=== PATIENT | male | born 1975 | race Caucasian/White ===

== ENCOUNTER 2017-09-06 02:49 | Emergency (ER) | payer MEDICAID ==
[~2017-09-06] VITALS: Ht 167.6 cm; Wt 77.3 kg
[~2017-09-06 02:49] MED LIST: BUPR-94 PO; OLAN20TA3 PO
[2017-09-06] MEDS ORDERED: ondansetron/PF 4mg/2ml inj IM ONE (03:05)
[2017-09-06] MEDS ORDERED: morphine 4 MG/ML inj SYRINge IM ONE (03:05)
[2017-09-06] MEDS ORDERED: dicyclomine 10mg/ml 2ml ampule IM ONE (04:15)
[2017-09-06 04:19] LABS: BASOPHILS % (AUTO) 0.4 % (0-1); EOSINOPHILS # (AUTO) 0.1 X10'3 (0-0.9); EOSINOPHILS % (AUTO) 1.5 % (0-6); HEMATOCRIT 46.1 % (42.0-52.0); HEMOGLOBIN 15.6 g/dl (14.0-17.9); LYMPHOCYTES # (AUTO) 1.1 X10'3 (1.1-4.8); LYMPHOCYTES % (AUTO) 13.2 % (21-51); MEAN CORPUSCULAR HEMOGLOBIN 28.6 PG (27.0-31.0); MEAN CORPUSCULAR HGB CONC 33.7 % (33.0-36.5); MEAN CORPUSCULAR VOLUME 84.8 FL (78-98); MEAN PLATELET VOLUME 7.3 FL (7.4-10.4); MONOCYTES # (AUTO) 0.5 X10'3 (0-0.9); MONOCYTES % (AUTO) 6.5 % (2-12); NEUTROPHILS # (AUTO) 6.6 X10'3 (1.8-7.7); NEUTROPHILS % (AUTO) 78.4 % (42-75); PLATELET COUNT 142 X10'3 (140-440); RED BLOOD COUNT 5.44 X10'6 (4.70-6.10); RED CELL DISTRIBUTION WIDTH 14.8 % (11.5-14.5); WHITE BLOOD COUNT 8.4 X10'3 (4.5-11.0)
[2017-09-06 04:28] LABS: GASTRIC OCCULT BLOOD POSITIVE (Neg)
[2017-09-06 04:31] LABS: ALANINE AMINOTRANSFERASE 110 U/L (12-78); ALBUMIN 4.2 G/DL (3.4-5.0); ALKALINE PHOSPHATASE 56 IU/L (46-116); ANION GAP 8 (8-16); ASPARTATE AMINO TRANSFERASE 45 U/L (10-37); BILIRUBIN,TOTAL 0.6 MG/DL (0.1-1.0); BLOOD UREA NITROGEN 19 MG/DL (7-18); BUN/CREATININE RATIO 19.8 (5.4-32.0); CALCIUM 9.3 MG/DL (8.5-10.1); CHLORIDE 102 MMOL/L (99-107); CREATININE 0.96 MG/DL (0.60-1.10); GLUCOSE 114 MG/DL (70-104); POTASSIUM 3.9 MMOL/L (3.5-5.1); SODIUM 140 MMOL/L (135-145); TOTAL CARBON DIOXIDE 30.1 MMOL/L (24-32); TOTAL PROTEIN 8.5 G/DL (6.4-8.2); eGFR 85 ML/MIN
[2017-09-06] MEDS ORDERED: MAGN296S50 PO (04:56)
[2017-09-06] MEDS ORDERED: ONDA8TAB9 PO (04:56)
[2017-09-06] MEDS ORDERED: DICY10CA88 PO (04:56)
[2017-09-06 08:03] VITALS: BP 131/91
[2017-09-07] MEDS ORDERED: MULT-1154 PO (15:18)
[2017-09-07] MEDS ORDERED: OMEP20TA5 PO (15:18)
[2017-09-07] MEDS ORDERED: METO25TA6 PO (15:18)
[2017-09-07] MEDS ORDERED: MAGN296S50 PO (15:33)
[2017-09-07] MEDS ORDERED: ONDA4TAB6 PO (15:33)
[2017-09-07] MEDS ORDERED: ACET-2119 PO (15:33)
[2017-09-07] MEDS ORDERED: FAMO-128 PO (15:33)
[2017-09-07] MEDS ORDERED: OLAN-1 PO (15:33)
[2017-09-07] MEDS ORDERED: BUPR100T13 PO (15:33)
[2017-09-07] MEDS ORDERED: HYDR-565 PO (15:33)
== END 2017-09-06 07:50 | disposition home or self-care (01) ==
LOC: ER 02:50
DX: K59.00 Constipation, unspecified (principal); R10.12 Left upper quadrant pain; K92.0 Hematemesis; F12.10 Cannabis abuse, uncomplicated; F15.10 Other stimulant abuse, uncomplicated; Z56.0 Unemployment, unspecified; Z60.2 Problems related to living alone; Z59.0 Homelessness; Z79.899 Other long term (current) drug therapy
CPT/HCPCS: 36415; 74022; 80053; 82271; 85025; 96372; 99285; J0500; J2270; J2405

== ENCOUNTER 2017-09-06 21:45 | Inpatient (IN) | payer MEDICAID ==
[~2017-09-06] VITALS: Ht 172.7 cm; Wt 77.3 kg
[~2017-09-06 21:45] MED LIST changes: +DICY10CA88 PO; +MAGN296S50 PO; +ONDA8TAB9 PO
[2017-09-06] MEDS ORDERED: ketorolac trometh. 30mg/ml inj. IV ONE (21:55)
[2017-09-06] MEDS ORDERED: magnesium citrate 296ml oral solution PO ONE (21:55)
[2017-09-06] MEDS ORDERED: ondansetron/PF 4mg/2ml inj IV ONE (22:35)
[2017-09-07] MEDS: normal saline 1000ml 1,000 ML IV SCH ×4 (00:44→19:17)
[2017-09-07] MEDS ORDERED: diphenhydrAMINE 50 mg/ml inj IV PRN (00:45)
[2017-09-07] MEDS ORDERED: mag hydrox/Alum hydrox/simeth 30ml oral suspension PO PRN (00:45)
[2017-09-07] MEDS ORDERED: HYDROcodone/acetaminophen 5mg/325mg tablet PO PRN (00:45)
[2017-09-07] MEDS ORDERED: metoclopramide 5 mg/ml inj IV PRN (00:45)
[2017-09-07] MEDS ORDERED: HYDROmorphone inj. 0.5 MG/0.5 ML DISP.SYRIN IV PRN ×2 (00:45)
[2017-09-07] MEDS ORDERED: magnesium hydroxide 30ml (MOM) UD suspension PO PRN (00:45)
[2017-09-07] MEDS ORDERED: morphine 2 MG/ML inj. syringe IV PRN ×2 (00:45)
[2017-09-07] MEDS ORDERED: bisacodyl 10mg suppository rectal RC PRN (00:45)
[2017-09-07] MEDS ORDERED: acetaminophen 325mg tablet PO PRN ×2 (00:45)
[2017-09-07] MEDS ORDERED: acetaminophen 650mg rectal suppository RC PRN (00:45)
[2017-09-07] MEDS ORDERED: diphenhydrAMINE 25mg capsule PO PRN (00:45)
[2017-09-07] MEDS ORDERED: mineral oil 133ml enema RC PRN (00:50)
[2017-09-07] MEDS ORDERED: PEG 3350/Na sulf,bicarb,Cl/KCl oral sol 4 liter bottle PO ONE ×2 (00:50→01:13)
[2017-09-07 01:29] LABS: LIPASE 205 U/L (73-393); MAGNESIUM 2.6 MG/DL (1.5-2.4); PHOSPHORUS 2.7 MG/DL (2.3-4.5); TROPONIN I < 0.04 NG/ML (0.0-0.05)
[2017-09-07] MEDS ORDERED: normal saline 1000ML IV soln IVB ONE (01:35)
[2017-09-07 04:33] LABS: BASOPHILS % (AUTO) 0.3 % (0-1); EOSINOPHILS % (AUTO) 0.2 % (0-6); HEMATOCRIT 46.8 % (42.0-52.0); HEMOGLOBIN 15.6 g/dl (14.0-17.9); LYMPHOCYTES # (AUTO) 1.1 X10'3 (1.1-4.8); LYMPHOCYTES % (AUTO) 10.9 % (21-51); MEAN CORPUSCULAR HEMOGLOBIN 28.5 PG (27.0-31.0); MEAN CORPUSCULAR HGB CONC 33.3 % (33.0-36.5); MEAN CORPUSCULAR VOLUME 85.7 FL (78-98); MEAN PLATELET VOLUME 8.6 FL (7.4-10.4); MONOCYTES # (AUTO) 0.7 X10'3 (0-0.9); MONOCYTES % (AUTO) 6.9 % (2-12); NEUTROPHILS # (AUTO) 8.2 X10'3 (1.8-7.7); NEUTROPHILS % (AUTO) 81.7 % (42-75); PLATELET COUNT 147 X10'3 (140-440); RED BLOOD COUNT 5.46 X10'6 (4.70-6.10); RED CELL DISTRIBUTION WIDTH 14.5 % (11.5-14.5)
[2017-09-07 04:38] LABS: ALANINE AMINOTRANSFERASE 99 U/L (12-78); ALBUMIN 4.3 G/DL (3.4-5.0); ALKALINE PHOSPHATASE 57 IU/L (46-116); ANION GAP 11 (8-16); ASPARTATE AMINO TRANSFERASE 43 U/L (10-37); BILIRUBIN,TOTAL 0.6 MG/DL (0.1-1.0); BLOOD UREA NITROGEN 22 MG/DL (7-18); BUN/CREATININE RATIO 20.6 (5.4-32.0); CALCIUM 9.4 MG/DL (8.5-10.1); CHLORIDE 102 MMOL/L (99-107); CREATININE 1.07 MG/DL (0.60-1.10); GLUCOSE 131 MG/DL (70-104); POTASSIUM 4.3 MMOL/L (3.5-5.1); SODIUM 143 MMOL/L (135-145); TOTAL CARBON DIOXIDE 29.6 MMOL/L (24-32); TOTAL PROTEIN 8.7 G/DL (6.4-8.2); eGFR 75 ML/MIN
[2017-09-07] MEDS: ondansetron/PF 4mg/2ml inj IV PRN ×3 (06:31→19:17)
[2017-09-07] MEDS ORDERED: ketorolac trometh. 30mg/ml inj. IV ONE (06:55)
[2017-09-07] MEDS: pantoprazole 40mg Tablet.DR PO SCH (07:30)
[2017-09-07] MEDS: docusate sod 100mg capsule PO SCH ×2 (08:00→20:00)
[2017-09-07] MEDS: heparin, porcine 5000 units/ml vial SQ SCH ×2 (10:16→21:08)
[2017-09-07] MEDS ORDERED: morphine 4 MG/ML inj SYRINge IV PRN (10:54)
[2017-09-07] MEDS: morphine 4 MG/ML inj SYRINge IV PRN ×3 (11:00→23:22)
[2017-09-07] MEDS ORDERED: morphine 4 MG/ML inj SYRINge IV ONE (13:35)
[2017-09-07 14:30] VITALS: BP 155/95
[2017-09-07] MEDS ORDERED: HYDROcodone/acetaminophen 10/325mg tab PO ONE (14:33)
[2017-09-07] MEDS: HYDROcodone/acetaminophen 10/325mg tab PO PRN (14:37)
[2017-09-07] MEDS ORDERED: MULT-1154 PO (15:18)
[2017-09-07] MEDS ORDERED: METO25TA6 PO (15:18)
[2017-09-07] MEDS ORDERED: OMEP20TA5 PO (15:18)
[2017-09-07] MEDS ORDERED: MAGN296S50 PO (15:33)
[2017-09-07] MEDS ORDERED: ONDA4TAB6 PO (15:33)
[2017-09-07] MEDS ORDERED: BUPR100T13 PO (15:33)
[2017-09-07] MEDS ORDERED: HYDR-565 PO (15:33)
[2017-09-07] MEDS ORDERED: FAMO-128 PO (15:33)
[2017-09-07] MEDS ORDERED: OLAN-1 PO (15:33)
[2017-09-07] MEDS ORDERED: ACET-2119 PO (15:33)
[2017-09-07 16:04] VITALS: BP 161/96
[2017-09-07 18:00] VITALS: BP 128/66
[2017-09-07] MEDS ORDERED: temazepam 15mg capsule PO PRN (21:00)
[2017-09-07] MEDS: buPROPion 100mg tablet PO SCH (21:07)
[2017-09-07] MEDS: OLANZapine 2.5MG tablet PO SCH (21:07)
[2017-09-07] MEDS ORDERED: proCHLORperazine 10 MG/2 ml inj IV PRN (21:25)
[2017-09-07] MEDS ORDERED: normal saline 1000ml 1,000 ML IVB ONE (21:33)
[2017-09-07 22:00] VITALS: BP 137/81
[2017-09-08] VITALS (10 sets, daily range): BP systolic 130–172; BP diastolic 66–110
[2017-09-08] MEDS: ondansetron/PF 4mg/2ml inj IV PRN ×4 (01:34→15:41)
[2017-09-08] MEDS: LORazepam 2 mg/ml vial IV PRN ×3 (01:44→19:56)
[2017-09-08] MEDS: morphine 4 MG/ML inj SYRINge IV PRN ×5 (03:02→21:05)
[2017-09-08 06:02] LABS: BASOPHILS % (AUTO) 0.1 % (0-1); EOSINOPHILS # (AUTO) 0.1 X10'3 (0-0.9); EOSINOPHILS % (AUTO) 0.8 % (0-6); HEMATOCRIT 37.9 % (42.0-52.0); HEMOGLOBIN 12.9 g/dl (14.0-17.9); LYMPHOCYTES % (AUTO) 10.7 % (21-51); MEAN CORPUSCULAR HEMOGLOBIN 28.9 PG (27.0-31.0); MEAN CORPUSCULAR HGB CONC 34.2 % (33.0-36.5); MEAN CORPUSCULAR VOLUME 84.6 FL (78-98); MEAN PLATELET VOLUME 7.5 FL (7.4-10.4); MONOCYTES % (AUTO) 10.9 % (2-12); NEUTROPHILS # (AUTO) 7.1 X10'3 (1.8-7.7); NEUTROPHILS % (AUTO) 77.5 % (42-75); RED BLOOD COUNT 4.48 X10'6 (4.70-6.10); RED CELL DISTRIBUTION WIDTH 14.7 % (11.5-14.5); WHITE BLOOD COUNT 9.1 X10'3 (4.5-11.0)
[2017-09-08 06:37] LABS: PLATELET COUNT 100 X10'3 (140-440)
[2017-09-08 06:48] LABS: ALANINE AMINOTRANSFERASE 63 U/L (12-78); ALBUMIN 3.3 G/DL (3.4-5.0); ALBUMIN/GLOBULIN RATIO 0.9 (1.1-1.5); ALKALINE PHOSPHATASE 44 IU/L (46-116); ANION GAP 9 (8-16); ASPARTATE AMINO TRANSFERASE 31 U/L (10-37); BILIRUBIN,TOTAL 0.6 MG/DL (0.1-1.0); BLOOD UREA NITROGEN 11 MG/DL (7-18); BUN/CREATININE RATIO 16.2 (5.4-32.0); CALCIUM 7.6 MG/DL (8.5-10.1); CHLORIDE 102 MMOL/L (99-107); CREATININE 0.68 MG/DL (0.60-1.10); GLUCOSE 126 MG/DL (70-104); POTASSIUM 3.4 MMOL/L (3.5-5.1); SODIUM 139 MMOL/L (135-145); TOTAL CARBON DIOXIDE 28.4 MMOL/L (24-32); eGFR > 90 ML/MIN
[2017-09-08] MEDS: pantoprazole 40mg Tablet.DR PO SCH (07:30)
[2017-09-08] MEDS: buPROPion 100mg tablet PO SCH ×2 (08:00→19:18)
[2017-09-08] MEDS: docusate sod 100mg capsule PO SCH ×2 (08:00→19:18)
[2017-09-08] MEDS: OLANZapine 2.5MG tablet PO SCH ×2 (08:00→19:19)
[2017-09-08] MEDS: heparin, porcine 5000 units/ml vial SQ SCH ×2 (08:00→20:00)
[2017-09-08] MEDS ORDERED: fentaNYL/PF 50MCG/1 ML 2ML syringe IV PRN (10:25)
[2017-09-08] MEDS ORDERED: normal saline 1000ml 1,000 ML IV SCH (10:25)
[2017-09-08] MEDS ORDERED: MIDAZolam 5mg/ml 2ml vial IV PRN (10:25)
[2017-09-08] MEDS ORDERED: simethicone 40mg/0.6ml oral drops 30ml MC ONE (10:25)
[2017-09-08] MEDS ORDERED: LIDOcaine Viscous 15ml cup PO ONE (10:25)
[2017-09-08] MEDS ORDERED: iohexol 300mg/ml 100ml inj. ONE (13:07)
[2017-09-08] MEDS ORDERED: MIDAZolam 5mg/ml 2ml vial ONE (13:44)
[2017-09-08] MEDS ORDERED: fentaNYL/PF 50MCG/1 ML 2ML syringe ONE (13:44)
[2017-09-08] MEDS ORDERED: LIDOcaine Viscous 15ml cup ONE (13:45)
[2017-09-08] MEDS ORDERED: ondansetron/PF 4mg/2ml inj ONE (15:35)
[2017-09-08] MEDS: normal saline 1000ml 1,000 ML IV SCH (16:44)
[2017-09-08] MEDS: pantoprazole 40MG/NS 100ML BAG 100 ML IV SCH ×2 (17:53→22:36)
[2017-09-08] MEDS ORDERED: magnesium 4gm in 100ml NS 100 ML IV PRN (18:35)
[2017-09-08] MEDS ORDERED: potassium Cl 40MEQ/NS 500ml 500 ML IV PRN ×2 (18:35)
[2017-09-08] MEDS ORDERED: magnesium Cl slow-release 64mg tablet PO PRN (18:35)
[2017-09-08] MEDS ORDERED: potassium Cl 20 mEq SR tablet PO PRN ×2 (18:35)
[2017-09-08] MEDS ORDERED: magnesium 2GM in 50ml NS 50 ML IV PRN (18:35)
[2017-09-09] MEDS ORDERED: morphine 4 MG/ML inj SYRINge IV ONE (00:10)
[2017-09-09] MEDS: morphine 4 MG/ML inj SYRINge IV PRN ×6 (01:15→20:52)
[2017-09-09] MEDS: normal saline 1000ml 1,000 ML IV SCH ×3 (02:44→14:55)
[2017-09-09] MEDS: pantoprazole 40MG/NS 100ML BAG 100 ML IV SCH ×5 (03:44→21:00)
[2017-09-09 05:40] LABS: BASOPHILS % (AUTO) 0.3 % (0-1); EOSINOPHILS % (AUTO) 0.7 % (0-6); HEMATOCRIT 32.3 % (42.0-52.0); HEMOGLOBIN 11.1 g/dl (14.0-17.9); LYMPHOCYTES # (AUTO) 1.3 X10'3 (1.1-4.8); LYMPHOCYTES % (AUTO) 25.2 % (21-51); MEAN CORPUSCULAR HEMOGLOBIN 28.8 PG (27.0-31.0); MEAN CORPUSCULAR HGB CONC 34.5 % (33.0-36.5); MEAN CORPUSCULAR VOLUME 83.6 FL (78-98); MEAN PLATELET VOLUME 7.6 FL (7.4-10.4); MONOCYTES # (AUTO) 0.5 X10'3 (0-0.9); MONOCYTES % (AUTO) 9.6 % (2-12); NEUTROPHILS # (AUTO) 3.4 X10'3 (1.8-7.7); NEUTROPHILS % (AUTO) 64.2 % (42-75); PLATELET COUNT 95 X10'3 (140-440); RED BLOOD COUNT 3.87 X10'6 (4.70-6.10); RED CELL DISTRIBUTION WIDTH 14.9 % (11.5-14.5); WHITE BLOOD COUNT 5.4 X10'3 (4.5-11.0)
[2017-09-09 06:00] VITALS: BP 123/82
[2017-09-09 06:13] LABS: ALANINE AMINOTRANSFERASE 49 U/L (12-78); ALBUMIN 2.9 G/DL (3.4-5.0); ALBUMIN/GLOBULIN RATIO 0.9 (1.1-1.5); ALKALINE PHOSPHATASE 36 IU/L (46-116); ANION GAP 7 (8-16); ASPARTATE AMINO TRANSFERASE 16 U/L (10-37); BILIRUBIN,TOTAL 0.5 MG/DL (0.1-1.0); BLOOD UREA NITROGEN 14 MG/DL (7-18); BUN/CREATININE RATIO 18.4 (5.4-32.0); CALCIUM 7.7 MG/DL (8.5-10.1); CHLORIDE 108 MMOL/L (99-107); CREATININE 0.76 MG/DL (0.60-1.10); GLUCOSE 88 MG/DL (70-104); POTASSIUM 3.8 MMOL/L (3.5-5.1); SODIUM 144 MMOL/L (135-145); TOTAL CARBON DIOXIDE 29.2 MMOL/L (24-32); TOTAL PROTEIN 6.3 G/DL (6.4-8.2); eGFR > 90 ML/MIN
[2017-09-09] MEDS: OLANZapine 2.5MG tablet PO SCH ×2 (08:00→19:43)
[2017-09-09] MEDS: buPROPion 100mg tablet PO SCH ×2 (08:00→19:43)
[2017-09-09] MEDS: docusate sod 100mg capsule PO SCH ×2 (08:00→19:43)
[2017-09-09] MEDS: heparin, porcine 5000 units/ml vial SQ SCH ×2 (08:00→20:00)
[2017-09-09 10:00] VITALS: BP 122/80
[2017-09-09 18:00] VITALS: BP 125/85
[2017-09-09 20:00] VITALS: BP 131/89
[2017-09-10] MEDS: morphine 4 MG/ML inj SYRINge IV PRN ×8 (00:04→21:38)
[2017-09-10] MEDS: normal saline 1000ml 1,000 ML IV SCH ×3 (01:25→20:30)
[2017-09-10] MEDS: pantoprazole 40MG/NS 100ML BAG 100 ML IV SCH ×7 (06:00→22:51)
[2017-09-10 06:28] LABS: BASOPHILS % (AUTO) 0.6 % (0-1); EOSINOPHILS % (AUTO) 1.4 % (0-6); HEMATOCRIT 30.1 % (42.0-52.0); HEMOGLOBIN 10.3 g/dl (14.0-17.9); LYMPHOCYTES # (AUTO) 0.7 X10'3 (1.1-4.8); LYMPHOCYTES % (AUTO) 22.5 % (21-51); MEAN CORPUSCULAR HGB CONC 34.3 % (33.0-36.5); MEAN CORPUSCULAR VOLUME 84.4 FL (78-98); MEAN PLATELET VOLUME 7.3 FL (7.4-10.4); MONOCYTES # (AUTO) 0.4 X10'3 (0-0.9); MONOCYTES % (AUTO) 13.9 % (2-12); NEUTROPHILS # (AUTO) 1.9 X10'3 (1.8-7.7); NEUTROPHILS % (AUTO) 61.6 % (42-75); PLATELET COUNT 96 X10'3 (140-440); RED BLOOD COUNT 3.56 X10'6 (4.70-6.10); RED CELL DISTRIBUTION WIDTH 14.5 % (11.5-14.5); WHITE BLOOD COUNT 3.1 X10'3 (4.5-11.0)
[2017-09-10 06:46] LABS: ALANINE AMINOTRANSFERASE 42 U/L (12-78); ALBUMIN 2.7 G/DL (3.4-5.0); ALBUMIN/GLOBULIN RATIO 0.8 (1.1-1.5); ALKALINE PHOSPHATASE 33 IU/L (46-116); ANION GAP 10 (8-16); ASPARTATE AMINO TRANSFERASE 20 U/L (10-37); BILIRUBIN,TOTAL 0.5 MG/DL (0.1-1.0); BLOOD UREA NITROGEN 15 MG/DL (7-18); BUN/CREATININE RATIO 22.7 (5.4-32.0); CALCIUM 7.7 MG/DL (8.5-10.1); CHLORIDE 110 MMOL/L (99-107); CREATININE 0.66 MG/DL (0.60-1.10); GLUCOSE 68 MG/DL (70-104); MAGNESIUM 1.8 MG/DL (1.5-2.4); POTASSIUM 3.7 MMOL/L (3.5-5.1); SODIUM 144 MMOL/L (135-145); TOTAL CARBON DIOXIDE 23.9 MMOL/L (24-32); TOTAL PROTEIN 6.1 G/DL (6.4-8.2); eGFR > 90 ML/MIN
[2017-09-10] MEDS: OLANZapine 2.5MG tablet PO SCH ×2 (08:00→20:29)
[2017-09-10] MEDS: buPROPion 100mg tablet PO SCH ×2 (08:00→20:29)
[2017-09-10] MEDS: docusate sod 100mg capsule PO SCH ×2 (08:00→20:29)
[2017-09-10 18:00] VITALS: BP 138/91
[2017-09-10] MEDS ORDERED: pantoprazole 40 MG vial IV ONE (20:00)
[2017-09-10 21:47] VITALS: BP 164/105
[2017-09-10 22:54] VITALS: BP 146/99
[2017-09-11] MEDS: morphine 4 MG/ML inj SYRINge IV PRN ×8 (00:34→21:49)
[2017-09-11] MEDS: pantoprazole 40MG/NS 100ML BAG 100 ML IV SCH ×2 (03:43→10:42)
[2017-09-11 06:00] VITALS: BP 140/92
[2017-09-11 06:18] LABS: BASOPHILS % (AUTO) 0.5 % (0-1); EOSINOPHILS # (AUTO) 0.1 X10'3 (0-0.9); EOSINOPHILS % (AUTO) 2.3 % (0-6); HEMATOCRIT 29.5 % (42.0-52.0); HEMOGLOBIN 10.3 g/dl (14.0-17.9); LYMPHOCYTES # (AUTO) 0.9 X10'3 (1.1-4.8); LYMPHOCYTES % (AUTO) 31.6 % (21-51); MEAN CORPUSCULAR HEMOGLOBIN 29.3 PG (27.0-31.0); MEAN CORPUSCULAR VOLUME 83.7 FL (78-98); MEAN PLATELET VOLUME 6.8 FL (7.4-10.4); MONOCYTES # (AUTO) 0.4 X10'3 (0-0.9); NEUTROPHILS # (AUTO) 1.5 X10'3 (1.8-7.7); NEUTROPHILS % (AUTO) 51.6 % (42-75); PLATELET COUNT 111 X10'3 (140-440); RED BLOOD COUNT 3.53 X10'6 (4.70-6.10); RED CELL DISTRIBUTION WIDTH 14.4 % (11.5-14.5)
[2017-09-11 06:43] LABS: ALANINE AMINOTRANSFERASE 43 U/L (12-78); ALBUMIN 2.5 G/DL (3.4-5.0); ALBUMIN/GLOBULIN RATIO 0.8 (1.1-1.5); ALKALINE PHOSPHATASE 40 IU/L (46-116); ANION GAP 8 (8-16); ASPARTATE AMINO TRANSFERASE 30 U/L (10-37); BILIRUBIN,TOTAL 0.7 MG/DL (0.1-1.0); BLOOD UREA NITROGEN 8 MG/DL (7-18); BUN/CREATININE RATIO 13.1 (5.4-32.0); CALCIUM 7.5 MG/DL (8.5-10.1); CHLORIDE 106 MMOL/L (99-107); CREATININE 0.61 MG/DL (0.60-1.10); GLUCOSE 82 MG/DL (70-104); MAGNESIUM 1.6 MG/DL (1.5-2.4); POTASSIUM 3.3 MMOL/L (3.5-5.1); SODIUM 140 MMOL/L (135-145); TOTAL CARBON DIOXIDE 25.9 MMOL/L (24-32); TOTAL PROTEIN 5.8 G/DL (6.4-8.2); eGFR > 90 ML/MIN
[2017-09-11 06:53] LABS: PLATELET ESTIMATE DECREASED; TOTAL CELLS COUNTED 100
[2017-09-11 06:54] LABS: ANISOCYTOSIS 1+; ELLIPTOCYTES FEW; MICROCYTOSIS 1+
[2017-09-11] MEDS: docusate sod 100mg capsule PO SCH ×2 (07:07→21:49)
[2017-09-11] MEDS: buPROPion 100mg tablet PO SCH ×2 (07:07→21:50)
[2017-09-11] MEDS: OLANZapine 2.5MG tablet PO SCH ×2 (08:25→21:49)
[2017-09-11 10:00] VITALS: BP 129/85
[2017-09-11] MEDS: normal saline 1000ml 1,000 ML IV SCH ×2 (14:44→23:04)
[2017-09-11 18:00] VITALS: BP 159/82
[2017-09-11] MEDS: pantoprazole 40mg Tablet.DR PO SCH (21:50)
[2017-09-11 22:00] VITALS: BP 151/97
[2017-09-11] MEDS ORDERED: potassium Cl 20 mEq SR tablet PO PRN ×2 (22:35)
[2017-09-11] MEDS ORDERED: potassium Cl 40MEQ/NS 500ml 500 ML IV PRN ×2 (22:35)
[2017-09-12] MEDS: morphine 4 MG/ML inj SYRINge IV PRN ×2 (00:51→03:51)
[2017-09-12 06:00] VITALS: BP 139/88
[2017-09-12] MEDS: normal saline 1000ml 1,000 ML IV SCH (06:46)
[2017-09-12 06:53] LABS: BASOPHILS % (AUTO) 0.5 % (0-1); EOSINOPHILS # (AUTO) 0.1 X10'3 (0-0.9); EOSINOPHILS % (AUTO) 3.6 % (0-6); HEMATOCRIT 30.9 % (42.0-52.0); HEMOGLOBIN 10.5 g/dl (14.0-17.9); LYMPHOCYTES # (AUTO) 1.5 X10'3 (1.1-4.8); LYMPHOCYTES % (AUTO) 37.3 % (21-51); MEAN CORPUSCULAR HEMOGLOBIN 28.8 PG (27.0-31.0); MEAN CORPUSCULAR HGB CONC 34.2 % (33.0-36.5); MEAN CORPUSCULAR VOLUME 84.4 FL (78-98); MEAN PLATELET VOLUME 6.9 FL (7.4-10.4); MONOCYTES # (AUTO) 0.4 X10'3 (0-0.9); NEUTROPHILS # (AUTO) 1.9 X10'3 (1.8-7.7); NEUTROPHILS % (AUTO) 47.6 % (42-75); PLATELET COUNT 152 X10'3 (140-440); RED BLOOD COUNT 3.66 X10'6 (4.70-6.10); RED CELL DISTRIBUTION WIDTH 14.5 % (11.5-14.5); WHITE BLOOD COUNT 4.1 X10'3 (4.5-11.0)
[2017-09-12] MEDS: buPROPion 100mg tablet PO SCH ×2 (07:07→20:59)
[2017-09-12] MEDS: pantoprazole 40mg Tablet.DR PO SCH ×2 (07:07→20:59)
[2017-09-12] MEDS: docusate sod 100mg capsule PO SCH ×2 (07:07→20:58)
[2017-09-12] MEDS: HYDROcodone/acetaminophen 10/325mg tab PO PRN (07:08)
[2017-09-12] MEDS: OLANZapine 2.5MG tablet PO SCH ×2 (07:08→20:58)
[2017-09-12 07:12] LABS: ALANINE AMINOTRANSFERASE 49 U/L (12-78); ALBUMIN 2.6 G/DL (3.4-5.0); ALBUMIN/GLOBULIN RATIO 0.7 (1.1-1.5); ALKALINE PHOSPHATASE 57 IU/L (46-116); ANION GAP 11 (8-16); ASPARTATE AMINO TRANSFERASE 36 U/L (10-37); BILIRUBIN,TOTAL 0.6 MG/DL (0.1-1.0); BLOOD UREA NITROGEN 6 MG/DL (7-18); BUN/CREATININE RATIO 9.5 (5.4-32.0); CALCIUM 7.8 MG/DL (8.5-10.1); CHLORIDE 104 MMOL/L (99-107); CREATININE 0.63 MG/DL (0.60-1.10); GLUCOSE 73 MG/DL (70-104); MAGNESIUM 1.5 MG/DL (1.5-2.4); POTASSIUM 3.8 MMOL/L (3.5-5.1); SODIUM 140 MMOL/L (135-145); TOTAL CARBON DIOXIDE 25.2 MMOL/L (24-32); TOTAL PROTEIN 6.1 G/DL (6.4-8.2); eGFR > 90 ML/MIN
[2017-09-12 08:40] VITALS: BP_SYST 109; BP_SYST 162; BP_DIAS 101; BP_DIAS 60
[2017-09-12 10:00] VITALS: BP 125/90
[2017-09-12] MEDS: oxyCODONE/APAP 5-325mg tablet PO PRN ×3 (12:59→20:59)
[2017-09-12 18:30] VITALS: BP 140/92
[2017-09-12 22:00] VITALS: BP 129/88
[2017-09-13] MEDS: oxyCODONE/APAP 5-325mg tablet PO PRN ×3 (01:31→12:11)
[2017-09-13 06:16] LABS: MAGNESIUM 1.6 MG/DL (1.5-2.4); POTASSIUM 3.4 MMOL/L (3.5-5.1)
[2017-09-13] MEDS: normal saline 1000ml 1,000 ML IV SCH ×2 (06:37→06:44)
[2017-09-13] MEDS ORDERED: cephalexin 500mg capsule PO SCH (08:00)
[2017-09-13] MEDS ORDERED: PANT40TA4 PO (08:07)
[2017-09-13] MEDS ORDERED: CEPH500C5 PO (08:07)
[2017-09-13] MEDS ORDERED: SUCR1TAB34 PO (08:07)
[2017-09-13] MEDS ORDERED: PER5325T PO (08:07)
[2017-09-13] MEDS: pantoprazole 40mg Tablet.DR PO SCH (08:29)
[2017-09-13] MEDS: docusate sod 100mg capsule PO SCH (08:29)
[2017-09-13] MEDS: OLANZapine 2.5MG tablet PO SCH (08:30)
[2017-09-13] MEDS: buPROPion 100mg tablet PO SCH (08:30)
[2017-09-13 10:00] VITALS: BP 157/105
[2017-09-13] MEDS ORDERED: sucralfate 1 gm tablet PO SCH (11:00)
== END 2017-09-13 15:30 | DRG 862 ==
LOC: ER 21:45 → ED HOLD 09-07 00:44 → ORTHO 4S 09-07 15:46
PROVIDERS: ADMIT Family Medicine; ATTEND Family Medicine
PROC: BW211ZZ Computerized Tomography (CT Scan) of Abdomen and Pelvis using Low Osmolar Contrast (ICD-10-PCS; principal; 2017-09-08)
PROC: 0DB68ZX Excision of Stomach, Via Natural or Artificial Opening Endoscopic, Diagnostic (ICD-10-PCS; 2017-09-08)
PROC: 0D9670Z Drainage of Stomach with Drainage Device, Via Natural or Artificial Opening (ICD-10-PCS; 2017-09-08)
DX: T81.89XD Other complications of procedures, not elsewhere classified, subsequent encounter (principal); S31.109D Unspecified open wound of abdominal wall, unspecified quadrant without penetration into peritoneal cavity, subsequent encounter; K25.0 Acute gastric ulcer with hemorrhage; K31.1 Adult hypertrophic pyloric stenosis; K22.8 Other specified diseases of esophagus; F20.9 Schizophrenia, unspecified; E86.0 Dehydration; F12.90 Cannabis use, unspecified, uncomplicated; F31.9 Bipolar disorder, unspecified; F19.10 Other psychoactive substance abuse, uncomplicated; I10 Essential (primary) hypertension; K21.0 Gastro-esophageal reflux disease with esophagitis; K56.41 Fecal impaction; Z60.2 Problems related to living alone; Z59.0 Homelessness; Z56.0 Unemployment, unspecified
CPT/HCPCS: 36415; 43239; 71250; 74176; 74177; 80053; 83690; 83735; 83880; 84100; 84132; 84484; 85025; 87070; 87075; 87077; 87186; 96374; 96375; 99285; A4620; A6209; A6212; A6213; A6402; A6449; C9113; G0500; J0780; J1644; J1885; J2060; J2250; J2270; J2405; J3010; J3480; J7030; Q9967